=== PATIENT | female | born 1995 | race Asian ===

== ENCOUNTER 2021-11-18 13:00 | Emergency (ER) | payer SELFPAY ==
[2021-11-18 13:03] VITALS: BP 125/79; PULSE 86; RESP 16; TEMP 36.8; O2SAT 100; BMI 19.4
--- NOTE | 2021-11-18 13:55 | EDS_ITS ---
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 She may have passed a clot) Onset: Days Context: Sudden Onset Timing: Intermittent Current Severity: Spotting Maximum Severity: Similar to period Associated Symptoms Associated Symptoms: Positive for Frequency and Missed Period; Negative for Dysuria, Urgency and Hematuria Last known menstrual period: September 20, 2021 Test: Positive Sexually: Positive for Active Control: No control P: 0 Ab: 0 Narrative Narrative: Patient is a 26-year-old G1, P0 Ab0 female who presents because of vaginal bleeding that started Thursday of last week. She states her blood type is O+. I was informed this is an unwanted . She is scheduled for an elective . She is presently complaining of minimal bleeding with cramping. The cramping is in the pelvic area. Her cramping and bleeding started Thursday, November 13. She does report frequency otherwise no urologic symptoms. She does report nausea without vomiting or diarrhea. She does report lightheadedness. Prior similar symptoms: No Recent Illness/Hospitalization: No PFSH PFSH Medical History no medical history no medical history Home Medications NK 11/18/21 [History Last Taken Unknown] Allergy/AdvReac Type Severity Reaction Status Date / Time No Known Allergies Allergy Verified 11/18/21 13:03 Surgical History no surgical history no surgical history Social History (Updated 11/18/21 @ 14:[address] Navdeep Mayo MD) household members: family Smoking Status: Never smoker substance use type: does not use ROS ROS ED Constitutional Constitutional ED: Denies chills, fever(s) or subjective Eyes Eyes: Denies blurry vision or change in vision ENT ENT ED: Denies ear pain, rhinorrhea or sore throat Cardiovascular Cardiovascular: Denies chest pain or palpitations Respiratory/Chest Respiratory/Chest: Denies cough, dyspnea or dyspnea on exertion Gastrointestinal Gastrointestinal: Reports abdominal pain and nausea; Denies constipation, diarrhea or vomiting Genitourinary Genitourinary ED: Denies dysuria, hematuria or urinary frequency Musculoskeletal Musculoskeletal: Denies arthralgias, myalgias or neck pain Integumentary Denies abscess, Abrasions or rash Neurologic Neurologic: Denies headache(s), paresthesias or weakness Hematologic/Lymphatic Hematologic/Lymphatic: Denies easy bleeding or easy bruising EXAM Physical Exam Const Vital Signs: 11/18/21 13:03 11/18/21 15:28 Temperature 98.3 F Temperature Source Temporal Pulse Rate 86 70 Respiratory Rate 16 16 Blood Pressure 125/79 H 107/67 Blood Pressure Mean 94 80 Pulse Ox 100 100 Oxygen Delivery Method Room Air Room Air Positive well nourished and well developed General Appearance ED: well developed and NAD; Negative for odor of alcohol detected or pallor HEENT Reports moist mucous membranes HEENT Narrative: Nares patent. Ears normal. Negative for trauma or tenderness Eyes PERRL and EOMs intact bilaterally General Eye ED: Negative for pale conjunctiva or scleral icterus Neck no lymphadenopathy, supple and no JVD Resp normal respiratory effort and clear to auscultation bilaterally Cardio regular rate, regular rhythm, S1 normal heart sound, no murmurs and no JVD GI normal to inspection, nondistended, normoactive bowel sounds, soft to palpation and non-distended; Negative for non-tender Auscultation: hypoactive bowel sounds Palpation: tender suprapubic no CVA tenderness, external exam normal and appearance of the vagina normal; Negative for appearance of the cervix normal Narrative: Bimanual exam was very limited. Patient was unable to relax. I believe the uterus is enlarged to 6 to 8 weeks gestation which would correlate with dates. There is a lesion noted cervix from approximately 10:00 to 2:00 and a pie shaped distribution to the os. Apparently patient's never had a pelvic exam or Pap smear. External Female Exam: normal appearance of the urethra Speculum Exam - Cervix: cervical os closed and cervical lesion; Negative for ti ssue present in the cervical os, cervical bleeding or abnormal cervical discharge Neuro oriented x3, CN's II-XII intact bilaterally and no sensory deficits noted Sensorium / Orientation: alert Motor Exam: strength 5/5 throughout Psych mental status grossly normal Skin no rashes or lesions noted and no wounds General Skin Exam: Negative for jaundice or pallor MDM MDM MDM Narrative Medical decision making narrative: Patient presents with vaginal bleeding. Differential is complete AB versus incomplete AB versus threatened AB. Since blood type is known this was not ordered. Because she gets orthostatic symptoms and bleeding started 5 days ago will obtain an H&H. Will perform pelvic exam to determine if bleeding is from the uterus or not and will perform bedside ultrasound to determine if a formal ultrasound is needed or not. There is no active bleeding. Exam is limited because of patient's apprehension and yarsani believes. Transabdominal ultrasound reveals a single live intrauterine with a heartbeat. Patient and family were made aware of this result. Patient and family were made aware of concern for abnormality noted on cervix and need for [employer] follow-up. She apparently is scheduled for an elective AB this coming Thursday. For this reason quantitative hCGs were not obtained. Lab Data Attestation: I reviewed the patient's lab results. Labs: Laboratory Results - last 24 hr 11/18/21 14:05 Hgb 12.0 Hct 37.4 Discharge Plan Triage Chief Complaint: Vag Bld, Preg ED Provider: Navdeep Mayo Dx/Rx/DC Orders Clinical Impression: , threatened, Abnormal cervix finding Instructions: ED Possible Miscarriage ... Prescriptions: No Action NK RF: 0 Primary Care Provider: Care Physician,No Primary Referrals: Britney Garcia DO [STAFF PHYSICIAN] - 5-7 Days Care Physician,No Primary [Primary Care Provider] - Activity Restrictions/Additional Instructions: If your intent is to have an keep your appointment on Thursday. Contact Dr. Britney Garcia's office for follow-up regarding the abnormal lesion noted on the cervix. Disposition Disposition: Home, Self Care
[2021-11-18 14:10] LABS: Hematocrit 37.4 % (37-47)
[2021-11-18 15:28] VITALS: BP 107/67; PULSE 70; RESP 16; O2SAT 100
--- NOTE | 2021-11-18 16:57 | ED.RN ---
Ipad used for director of government sales purposes to provide discharge instructions to pt.
== END 2021-11-18 16:58 | disposition home or self-care (01) ==
PROVIDERS: Emergency Provider Emergency Medicine; Visit Provider Emergency Medicine
DX: O20.0 Threatened abortion (principal); O34.41 Maternal care for other abnormalities of cervix, first trimester; Z3A.00 Weeks of gestation of pregnancy not specified
CPT/HCPCS: 85014; 85018; 99282; A4216